=== PATIENT | female | born 1975 | race Caucasian/White ===

== ENCOUNTER 2017-10-23 11:15 | Outpatient (RCR) | payer OTHER ==
[2017-10-23] VITALS (11 sets, daily range): BP systolic 111–140; BP diastolic 63–75; PULSE 62–96; TEMP 98.6
[~2017-10-23] VITALS: Ht 167.6 cm; Wt 97.0 kg
[2017-10-23] MEDS ORDERED: NATURAL IRON65 MG PO (11:27)
== END 2017-10-23 16:03 | disposition home or self-care (01) ==
LOC: EUO 11:15
DX: D50.0 Iron deficiency anemia secondary to blood loss (chronic) (principal); N92.1 Excessive and frequent menstruation with irregular cycle
CPT/HCPCS: P9016

== ENCOUNTER 2017-10-27 12:53 | Day surgery (SDC) | payer OTHER ==
[2017-10-27] VITALS (9 sets, daily range): BP systolic 96–130; BP diastolic 46–80; PULSE 64–96; TEMP 98.5
[~2017-10-27] VITALS: Ht 162.6 cm; Wt 97.8 kg
[~2017-10-27 12:53] MED LIST: NATURAL IRON65 MG PO
[2017-10-27 13:29] LABS: BASO % 0.4 % (0.0-2.0); EOS # 0.4 (0.0-0.7); EOS % 3.2 % (0-4.0); GRAN # 7.3 (1.4-6.5); GRAN % 67.6 % (42.2-75.2); HEMATOCRIT 34.4 % (37.0-47.0); LYMPH # 2.4 (1.2-3.4); LYMPH % 21.9 % (20.0-51.0); MEAN CELL VOLUME 68 fl (80.0-100.0); MEAN CORPUSCULAR HEMOGLOBIN 20 pg (27.0-31.0); MEAN CORPUSCULAR HGB CONC 29 g/dl (33.0-37.0); MEAN PLATELET VOLUME 9.4 fl (7.4-10.4); MONO # 0.7 (0.1-0.6); MONO % 6.3 % (1.7-9.3); PLATELET COUNT 410 K/mm3 (130-400); RED BLOOD COUNT 5.08 M/mm3 (4.10-5.30); REDCELL DISTRIBUTION WIDTH-CV 26.1 % (11.5-14.5)
[2017-10-27 13:38] LABS: ALBUMIN 4.2 gm/dL (3.5-5.0); BILIRUBIN,TOTAL 0.4 mg/dL (0.0-1.0); CALCIUM 9.1 mg/dL (8.4-10.2); CREATININE, serum 0.59 mg/dL (0.52-1.25); POTASSIUM 3.8 mmol/L (3.4-5.0); TOTAL PROTEIN 8.5 gm/dL (6.4-8.2)
[2017-10-27] MEDS ORDERED: MOTRIN 800800 MG/TAB PO (15:59)
[2017-10-27] MEDS ORDERED: PERCOCET 325 MG1 TA2 PO (15:59)
[2017-10-28 02:00] VITALS: BP 106/60; PULSE 55; TEMP 97.7
[2017-10-28 07:00] VITALS: BP 87/46; PULSE 66; TEMP 97.9
== END 2017-10-28 09:20 | disposition home or self-care (01) ==
LOC: SDCO 12:53 → OB 18:30 → SDCO 10-28 09:20
PROVIDERS: Obstetrics & Gynecology
DX: N92.1 Excessive and frequent menstruation with irregular cycle (principal); D50.0 Iron deficiency anemia secondary to blood loss (chronic); Z87.891 Personal history of nicotine dependence; Z98.51 Tubal ligation status
CPT/HCPCS: OP; A4314; C1713; J0690; J1100; J1885; J2405; J3010; J7120